=== PATIENT | female | born 1950 | race Caucasian/White ===

== ENCOUNTER 2018-11-23 13:47 | Emergency (ER) | payer MEDICARE, OTHER ==
[2018-11-23 14:18] VITALS: RESP 16; TEMP 98.2
[2018-11-23 15:02] LABS: Basophils % (A) 0 %; Eosinophils # (A) 0.1 k/uL (0-0.7); Eosinophils % (A) 1 %; HCT 38.1 % (34.0-46.0); HGB 12.2 gm/dL (11.4-16.0); Lymphocytes % (A) 11 %; MCH 27.2 pg (25.0-35.0); MCHC 32.1 g/dL (31.0-37.0); MCV 84.8 fL (80.0-100.0); Mean Platelet Volume 7.6; Monocytes # (A) 0.5 k/uL (0-1.0); Monocytes % (A) 6 %; Neutrophils # (A) 7.1 k/uL (1.3-7.7); Neutrophils % (A) 80 %; Platelet Count 215 k/uL (150-450); RDW 14.7 % (11.5-15.5); WBC 8.9 k/uL (3.8-10.6)
[2018-11-23 15:10] LABS: Albumin 3.7 g/dL (3.5-5.0); Calcium 9.9 mg/dL (8.4-10.2); Potassium 4.3 mmol/L (3.5-5.1); Total Bilirubin 0.6 mg/dL (0.2-1.3); Total Protein 6.8 g/dL (6.3-8.2)
--- NOTE | 2018-11-23 15:37 | XR ---
EXAMINATION TYPE: XR knee complete LT DATE OF EXAM: 11/23/2018 CLINICAL HISTORY: pain TECHNIQUE: 4 views of the left knee are obtained. COMPARISON: None. FINDINGS: Postoperative changes of total knee arthroplasty. Extensive methylmethacrylate within the d istal femur and proximal tibia with extrusion noted. Lucency at the tibial component tip suggesting l oosening. Underlying infection is not excluded. No acute fracture seen. IMPRESSION: Postsurgical change with the prosthetic loosening suggested. Underlying infection not excluded. No ac maurilio fracture identified.
--- NOTE | 2018-11-23 15:37 | XR ---
EXAMINATION TYPE: XR foot complete RT DATE OF EXAM: 11/23/2018 CLINICAL HISTORY: pain TECHNIQUE: Frontal, lateral and oblique images of the right foot are obtained. COMPARISON: None. FINDINGS: There is no acute fracture/dislocation evident. The joint spaces appear within normal up its. The overlying soft tissue appears unremarkable. IMPRESSION: There is no acute fracture or dislocation. ICD 10 NO FRACTURE, INITIAL EVALUATION
--- NOTE | 2018-11-23 15:38 | XR ---
EXAMINATION TYPE: XR pelvis AP view DATE OF EXAM: 11/23/2018 CLINICAL HISTORY: pain TECHNIQUE: Single view the pelvis is submitted. FINDINGS: No evidence for fracture, dislocation or bony lesion. Joint spaces are mildly to moderate ly narrowed. SI joints appear symmetric. IMPRESSION: 1. No acute fracture or dislocation seen. ICD 10 NO FRACTURE, INITIAL EVALUATION
--- NOTE | 2018-11-23 15:55 | ED ---
General Adult HPI - General Chief complaint: Skin/Abscess/Foreign Body Stated complaint: infection Time Seen by Provider: 11/23/18 14:04 Source: patient, EMS, RN notes reviewed, old records reviewed Mode of arrival: EMS Limitations: no limitations - History of Present Illness Initial comments: 59-year-old female present the emergency department today for evaluation of right foot pain, , redness over the dorsum of her foot and lateral aspect of her ankle. Patient reports this is going on for 2 days. She went to her PCPs office in the genital labwork. Her white blood cell count was elevated. She was sent in for further evaluation. She states she has history of chronic left knee problems after multiple knee replacements. She's had no significant fevers or chills. She states that she has pain with bearing weight over her right foot. She is supposed to see system support specialist tomorrow Dr. Lana Padron. Patient denies any fall or trauma to the foot or ankle or leg. - Related Data Home Medications Medication Instructions Recorded Confirmed Aspirin 81 mg PO DAILY 11/30/13 11/23/18 Calcium 600mg W Vit D200mg 2 tab PO BID 11/30/13 11/23/18 FLUoxetine HCL [PROzac] 60 mg PO DAILY 11/30/13 11/23/18 Furosemide [Lasix] 40 mg PO DAILY 11/30/13 11/23/18 Meloxicam 7.5 mg PO DAILY 11/30/13 11/23/18 Doxycycline Hyclate 100 mg PO BID 11/23/18 11/23/18 Ferrous Sulfate [Feosol] 325 mg PO TID 11/23/18 11/23/18 Glucosam/Mac-Msm1/C/Toni/Bosw 1 tab PO DAILY 11/23/18 11/23/18 [Glucosamine-Chondroitin Tablet] Metoprolol Tartrate [Lopressor] 25 mg PO BID 11/23/18 11/23/18 Rifampin [Rifadin] 300 mg PO DAILY 11/23/18 11/23/18 metFORMIN HCL [Glucophage] 1,000 mg PO BID 11/23/18 11/23/18 Previous Rx's Medication Instructions Recorded Lisinopril [Zestril] 10 mg PO BID #60 tab 12/03/13 HYDROcodone/APAP 5-325MG [[place] 1 tab PO Q6HR PRN #10 tab 11/23/18 5-325] Sulfamethox-Tmp 800-160Mg [Bactrim 2 tab PO Q12HR #40 tab 11/23/18 DS 800-160 mg] Allergies Allergy/AdvReac Type Severity Reaction Status Date / Time codeine AdvReac Nausea & Verified 11/23/18 14:50 Vomiting Review of Systems ROS Statement: Those systems with pertinent positive or pertinent negative responses have been documented in the HPI. ROS Other: All systems not noted in ROS Statement are negative. Past Medical History Past Medical History: COPD, Diabetes Mellitus, Hypertension, Osteoarthritis (OA), Pneumonia, Thyroid Disorder Additional Past Medical History / Comment(s): GLAUCOMA,, THYROID NODULES REMOVED, History of Any Multi-Drug Resistant Organisms: MRSA Date of last positivie culture/infection: 2011 MDRO Source:: LEFT KNEE 2ND SX Past Surgical History: Cholecystectomy, Joint Replacement Additional Past Surgical History / Comment(s): NATHANIEL KNEE REPLACEMENT, CAT ARACTS,D&C,NODULES REMOVED FROM LARNYX, Past Anesthesia/Blood Transfusion Reactions: Previous Problems w/ Anesthesia Additional Past Anesthesia/Blood Transfusion Reaction / Comment(s): HAD PROBLEMS WITH LOW BP IN RECOVERY ROOM Past Psychological History: Depression Smoking Status: Never smoker Past Alcohol Use History: None Reported Past Drug Use History: None Reported General Exam - General Exam Comments Initial Comments: This is a 67-year-old female. Alert and oriented. No distress. Limitations: no limitations General appearance: alert, in no apparent distress Head exam: Present: atraumatic, normocephalic, normal inspection Eye exam: Present: normal appearance, PERRL, EOMI. Absent: scleral icterus, conjunctival injection, periorbital swelling ENT exam: Present: normal exam, mucous membranes moist Neck exam: Present: normal inspection. Absent: tenderness, meningismus, lymphadenopathy Respiratory exam: Present: normal lung sounds bilaterally. Absent: respiratory distress, wheezes, rales, rhonchi, stridor Cardiovascular Exam: Present: regular rate, normal rhythm, normal heart sounds. Absent: systolic murmur, diastolic murmur, rubs, gallop, clicks GI/Abdominal exam: Present: soft, normal bowel sounds. Absent: distended, tenderness, guarding, rebound, rigid Extremities exam: Present: normal inspection, full ROM, normal capillary refill, other ( has minimal erythema over her dorsum of her right foot tenderness over the fourth and fifth metatarsal. ). Absent: tenderness, pedal edema, joint swelling, calf tenderness Left Knee exam: Present: full ROM, tenderness (Patient is some tenderness, minimal erythema over the knee. She has extensive scarring over the knee.). Absent: normal inspection Lower Leg exam: Present: normal inspection, full ROM Ankle exam: Present: normal inspection, full ROM Back exam: Present: normal inspection Neurological exam: Present: alert, oriented X3, CN II-XII intact Psychiatric exam: Present: normal affect, normal mood Skin exam: Present: warm, dry, intact, normal color. Absent: rash Course Vital Signs 11/23/18 14:16 Temperature 98.2 F Pulse Rate 80 Respiratory 16 Rate Blood Pressure 130/82 O2 Sat by Pulse 97 Oximetry Medical Decision Making - Medical Decision Making 59-year-old female presents today for right foot pain and erythema. Plan blood work was reviewed and unremarkable. White blood cell count is within normal limits at 6. Concerns for possible gout. Patient started to telemetry medications. X-ray of the foot was negative for any acute process. She has no calf tenderness. No concern for DVT at this time. Patient has pain is worse with ambulation. I discussed the Patient needs follow-up with system support specialist. We'll give the Patient an orthopedic shoe and Marshal wrap as well as reports pain medicine. She sees orthopedic tomorrow. We'll discharge Patient with also a short prescription for antibiotic until seen orthopedic. - Lab Data Result diagrams: 11/23/18 14:30 11/23/18 14:30 Lab Results 11/23/18 11/23/18 Range/Units 14:30 14:30 WBC 8.9 (3.8-10.6) k/uL RBC 4.50 (3.80-5.40) m/uL Hgb 12.2 (11.4-16.0) gm/dL Hct 38.1 (34.0-46.0) % MCV 84.8 (80.0-100.0) fL MCH 27.2 (25.0-35.0) pg MCHC 32.1 (31.0-37.0) g/dL RDW 14.7 (11.5-15.5) % Plt Count 215 (150-450) k/uL Neutrophils % 80 % Lymphocytes % 11 % Monocytes % 6 % Eosinophils % 1 % Basophils % 0 % Neutrophils # 7.1 (1.3-7.7) k/uL Lymphocytes # 1.0 (1.0-4.8) k/uL Monocytes # 0.5 (0-1.0) k/uL Eosinophils # 0.1 (0-0.7) k/uL Basophils # 0.0 (0-0.2) k/uL Sodium 138 (137-145) mmol/L Potassium 4.3 (3.5-5.1) mmol/L Chloride 100 (98-107) mmol/L Carbon Dioxide 25 (22-30) mmol/L Anion Gap 13 mmol/L BUN 27 H (7-17) mg/dL Creatinine 1.12 H (0.52-1.04) mg/dL Est GFR (CKD-EPI)AfAm 58 (>60 ml/min/1.73 sqM) Est GFR (CKD-EPI)NonAf 51 (>60 ml/min/1.73 sqM) Glucose 144 H (74-99) mg/dL Calcium 9.9 (8.4-10.2) mg/dL Total Bilirubin 0.6 (0.2-1.3) mg/dL AST 18 (14-36) U/L ALT 11 (9-52) U/L Alkaline Phosphatase 71 (38-126) U/L Total Protein 6.8 (6.3-8.2) g/dL Albumin 3.7 (3.5-5.0) g/dL Disposition Clinical Impression: Cellulitis of right foot, Effusion, left knee Disposition: HOME SELF-CARE Condition: Good Instructions (If sedation given, give patient instructions): Metatarsalgia (DC) Additional Instructions: Patient has a follow-up with system support specialist tomorrow. Anti-inflammatory medicine, as Patient may have gout. Take the antibiotics as prescribed. Keep her feet up and elevated. Return to the emergency department if any alarming signs or symptoms occur. Prescriptions: Sulfamethox-Tmp 800-160Mg [Bactrim DS 800-160 mg] 2 tab PO Q12HR #40 tab HYDROcodone/APAP 5-325MG [[place] 5-325] 1 tab PO Q6HR PRN #10 tab PRN Reason: Pain Is patient prescribed a controlled substance at d/c from ED?: Yes If prescribed controlled substance>3 days was MAPS reviewed?: Prescribed <3 Days If opioid is for acute pain is fill amount 7 days or less?: Yes If Rx opioid, was Start Talking consent form obtained?: Yes Referrals: Keyanna Morillo MD [Primary Care Provider] - 1-2 days Soren Ojeda DO [Doctor of Osteopathic Medicine] - 1-2 days Time of Disposition: 17:31
[2018-11-23] MEDS ORDERED: KETOROLAC 30 MG/ML 1 ML VIAL IVP STA (17:00)
[2018-11-23] MEDS ORDERED: HYDROcodone/APAP 5-325MG 1 EACH TAB PO STA (17:01)
[2018-11-23] MEDS ORDERED: SULFAMETH-TMP DS STARTER PACK 2 TAB BTL PO STA (17:27)
[2018-11-23 19:08] VITALS: BP 131/84; PULSE 81
== END 2018-11-23 19:00 | disposition home or self-care (01) ==
LOC: EC 13:47
DX: L03.115 Cellulitis of right lower limb (principal); M25.462 Effusion, left knee; E11.9 Type 2 diabetes mellitus without complications; I10 Essential (primary) hypertension; M19.90 Unspecified osteoarthritis, unspecified site; F32.9 Major depressive disorder, single episode, unspecified; Z87.01 Personal history of pneumonia (recurrent); Z86.14 Personal history of Methicillin resistant Staphylococcus aureus infection; Z90.49 Acquired absence of other specified parts of digestive tract; Z96.653 Presence of artificial knee joint, bilateral; Z98.890 Other specified postprocedural states; Z79.1 Long term (current) use of non-steroidal anti-inflammatories (NSAID); Z79.82 Long term (current) use of aspirin; Z79.84 Long term (current) use of oral hypoglycemic drugs; Z79.899 Other long term (current) drug therapy; Z88.5 Allergy status to narcotic agent
CPT/HCPCS: 36415; 80053; 85025; 87040; 72170; 73562; 73630; 99284; 96365; 96375; J0690; J1885

== ENCOUNTER → 2020-08-31 | Outpatient (CLI) | payer MEDICARE, OTHER ==
--- NOTE | 2020-08-31 13:10 | CT ---
EXAMINATION TYPE: CT lower extremity LT w con DATE OF EXAM: 08/31/2020 COMPARISON: Left knee x-ray November 23, 2018 HISTORY: left lower leg osteomyelitis; open wound with pain and swelling. CT DLP: 1510 mGycm Automated exposure control for dose reduction was used. CONTRAST: Performed with IV Contrast, patient injected with 80ml mL of Isovue 300. FINDINGS: Metallic hardware from longstem prosthesis in the distal femur is only partially imaged, significant streak artifact seen making evaluation suboptimal. There is additional streak artifact from prosthesi s in the proximal tibia. Entire tibia shows areas of lucency of hyperdensity likely reflecting cement material, there is cortical breakthrough with cement material extension into the adjacent lateral po sterior soft tissue at proximal to mid leg level. Findings extend all the way to the level of the ank le. There is underlying demineralization. There is bowing of the fibula. Distal femur shows heterogen eity with some suspicious surrounding lucency anteriorly along the visualized metallic hardware seen best on attempted sagittal images. There is focal subcutaneous edema anteriorly at level of distal femur near axial image 48 extending t hrough the anterior tibial margin. No well-formed thick walled fluid collection or drainable abscess seen. No remnant bone is identified at this level, there is limitation from streak artifact from meta llic prosthesis. IMPRESSION: Suboptimal study. Anterior soft tissue wound distal femoral level. Difficult to exclude o steomyelitis with extensive streak artifact and deformed [place] bone.
== END | disposition home or self-care (01) ==
LOC: RADCTMAIN 11:10
PROVIDERS: ATTEND Family Medicine
DX: M86.9 Osteomyelitis, unspecified (principal)
CPT/HCPCS: 82565; 84520; 73701; 36415; Q9967

== ENCOUNTER 2020-11-21 14:35 | Emergency (ER) | payer MEDICARE, OTHER ==
[2020-11-21 14:50] VITALS: RESP 18; TEMP 98.7
--- NOTE | 2020-11-21 15:58 | CT ---
EXAMINATION TYPE: CT brain jillian montague DATE OF EXAM: 11/21/2020 COMPARISON: None HISTORY: fall with blow to back of head, neck pain CT DLP: 1715.6 mGycm, Automated exposure control for dose reduction was used. CONTRAST: Patient injected with 0 mL of Isovue 300. CT of the brain is performed utilizing 3 mm thick sections through the posterior fossa and 3 mm thick sections through the remaining calvarium. Study is performed within 24 hours of arrival to the hospital. No abnormal hyperdensity is present to suggest an acute intracranial hemorrhage. No mass lesion is evident. No acute infarcts are evident. Periventricular white matter hypodensity is present, likely on the ba sis of chronic white matter ischemic-type change. Ventricles and sulci are mildly prominent for the patient age. Paranasal sinuses and mastoid air cells within the [id number] are clear. IMPRESSIONS: 1. Atrophy with periventricular white matter ischemic type changes CT cervical spine. COMPARISON: None CT of the cervical spine is performed in the axial plane at 2 mm thick sections. Reconstructed image s in the coronal, and sagittal plane are reviewed on the computer. No acute fractures are evident. Vertebral body alignment is normal. Mild disc height loss is evident at C5-6 and C7-T1. Anterior vertebral body spurring is noted at C4-T 1. Vertebral body heights are preserved. No spinal canal stenosis is evident. Uncovertebral joint hypertrophy present at C5-6 has severe right foraminal stenosis IMPRESSIONS: 1. Mild degenerative disc changes mid to lower cervical spine. 2. Severe right foraminal stenosis due to uncovertebral joint hypertrophy at the C5-6 level.
--- NOTE | 2020-11-21 16:10 | ED ---
Fall HPI - General Chief Complaint: Fall Stated Complaint: Fall, Head Injury Time Seen by Provider: 11/21/20 15:01 Source: patient, EMS, RN notes reviewed Mode of arrival: EMS - History of Present Illness Initial Comments: Patient is a 69-year-old female that presents to the emergency Department complaining of a fall with hitting her head while on aspirin. She notes that she got up on the bathroom walks to a carpeted hit a wet spot slipped and fell backwards. She noticed try to capture self was unable to. She noted that she hit the back of her head and it was bleeding mildly. Patient denied any significant pain stating it was 3 out of 10 and tolerable. She denied losing consciousness feeling dizzy lightheaded. She denied any chest pain shortness of breath headache nausea vomiting diarrhea constipation fever fatigue chills. - Related Data Home Medications Medication Instructions Recorded Confirmed Aspirin 81 mg PO DAILY 11/30/13 11/23/18 Calcium 600mg W Vit D200mg 2 tab PO BID 11/30/13 11/23/18 FLUoxetine HCL [PROzac] 60 mg PO DAILY 11/30/13 11/23/18 Furosemide [Lasix] 40 mg PO DAILY 11/30/13 11/23/18 Meloxicam 7.5 mg PO DAILY 11/30/13 11/23/18 Doxycycline Hyclate 100 mg PO BID 11/23/18 11/23/18 Ferrous Sulfate [Feosol] 325 mg PO TID 11/23/18 11/23/18 Glucosam/Mac-Msm1/C/Toni/Bosw 1 tab PO DAILY 11/23/18 11/23/18 [Glucosamine-Chondroitin Tablet] Metoprolol Tartrate [Lopressor] 25 mg PO BID 11/23/18 11/23/18 metFORMIN HCL [Glucophage] 1,000 mg PO BID 11/23/18 11/23/18 rifAMPin [Rifadin] 300 mg PO DAILY 11/23/18 11/23/18 Previous Rx's Medication Instructions Recorded lisinopriL [Zestril] 10 mg PO BID #60 tab 12/03/13 HYDROcodone/APAP 5-325MG [[place] 1 tab PO Q6HR PRN #10 tab 11/23/18 5-325] Sulfamethox-Tmp 800-160Mg [Bactrim 2 tab PO Q12HR #40 tab 11/23/18 DS 800-160 mg] Allergies Allergy/AdvReac Type Severity Reaction Status Date / Time codeine AdvReac Nausea & Verified 11/23/18 14:50 Vomiting Review of Systems ROS Statement: Those systems with pertinent positive or pertinent negative responses have been documented in the HPI. ROS Other: All systems not noted in ROS Statement are negative. Past Medical History Past Medical History: COPD, Diabetes Mellitus, Hypertension, Osteoarthritis (OA), Pneumonia, Thyroid Disorder Additional Past Medical History / Comment(s): GLAUCOMA,, THYROID NODULES REMOVED, History of Any Multi-Drug Resistant Organisms: MRSA Date of last positivie culture/infection: 2011 MDRO Source:: LEFT KNEE 2ND SX Past Surgical History: Cholecystectomy, Joint Replacement Additional Past Surgical History / Comment(s): NATHANIEL KNEE REPLACEMENT, CATARACTS,D&C,NODULES REMOVED FROM LARNYX, Past Anesthesia/Blood Transfusion Reactions: Previous Problems w/ Anesthesia Additional Past Anesthesia/Blood Transfusion Reaction / Comment(s): HAD PROBLEMS WITH LOW BP IN RECOVERY ROOM Past Psychological History: Depression Past Alcohol Use History: None Reported Past Drug Use History: None Reported General Exam Limitations: no limitations General appearance: alert, in no apparent distress, obese Head exam: Present: normocephalic, normal inspection. Absent: atraumatic (Rocky abrasion to the posterior aspect of the head, nonbleeding, no sutures needed.) Eye exam: Present: normal appearance, PERRL, EOMI. Absent: scleral icterus, conjunctival injection, periorbital swelling Neck exam: Present: normal inspection Respiratory exam: Present: normal lung sounds bilaterally. Absent: respiratory distress, wheezes, rales, rhonchi, stridor Cardiovascular Exam: Present: regular rate, normal rhythm, normal heart sounds. Absent: systolic murmur, diastolic murmur, rubs, gallop, clicks GI/Abdominal exam: Present: soft, normal bowel sounds. Absent: distended, tenderness, guarding, rebound, rigid Extremities exam: Present: normal inspection, full ROM, normal capillary refill. Absent: tenderness, pedal edema, joint swelling, calf tenderness Neurological exam: Present: alert, oriented X3 Psychiatric exam: Present: normal affect, normal mood Skin exam: Present: warm, dry, intact, normal color. Absent: rash Course Vital Signs 11/21/20 14:47 Temperature 98.7 F Pulse Rate 76 Respiratory 18 Rate Blood Pressure 153/80 O2 Sat by Pulse 98 Oximetry Medical Decision Making - Medical Decision Making 69-year-old female status post fall and hitting the back of her head while on aspirin. Computed tomography scan of the brain and C-spine ordered. Patient declined need for pain medication as it was tolerable at this time. Computed tomography scan negative for any acute process. Case discussed with Dr. Moody, patient can discharge home with follow-up to primary care. - Radiology Data Radiology results: report reviewed, image reviewed CT of the brain and C-spine: Mild degenerative disc changes mid to lower cer vical spine. Severe right foraminal stenosis due to uncovertebral joint hypertrophy at the C5-C6 level. Disposition Clinical Impression: Fall, Concussion Disposition: HOME SELF-CARE Condition: Stable Instructions (If sedation given, give patient instructions): Fall Prevention for Older Adults (ED) Additional Instructions: Please return to the Emergency Department if symptoms worsen or any other concerns. Follow-up primary care in the next several days. Take Tylenol as needed for pain control. Is patient prescribed a controlled substance at d/c from ED?: No Referrals: Keyanna Morillo MD [Primary Care Provider] - 1-2 days Time of Disposition: 16:10
[2020-11-21 17:17] VITALS: BP 120/70; PULSE 70
== END 2020-11-21 17:29 | disposition home or self-care (01) ==
LOC: EC 14:35
DX: S06.0X9A Concussion with loss of consciousness of unspecified duration, initial encounter (principal); E11.9 Type 2 diabetes mellitus without complications; I10 Essential (primary) hypertension; J44.9 Chronic obstructive pulmonary disease, unspecified; F32.9 Major depressive disorder, single episode, unspecified; M19.90 Unspecified osteoarthritis, unspecified site; Z79.82 Long term (current) use of aspirin; Z79.1 Long term (current) use of non-steroidal anti-inflammatories (NSAID); Z79.84 Long term (current) use of oral hypoglycemic drugs; Z88.5 Allergy status to narcotic agent; Z96.653 Presence of artificial knee joint, bilateral; W01.0XXA Fall on same level from slipping, tripping and stumbling without subsequent striking against object, initial encounter
CPT/HCPCS: 70450; 72125; 99284